=== PATIENT | male | born 1950 | race Caucasian/White ===

== ENCOUNTER → 2018-01-23 | Outpatient (CLI) | payer MEDICARE, OTHER ==
[~2018-01-23] MED LIST: DUT0.5 PO; FAM20 PO; GLUC500T13 PO; LEVO50 PO; LEVO50TA80 PO; LEVO75TA73 PO; LOR5/325 PO; LOSA100T67 PO; LOSA25TA46 PO; LUTE10TA3 PO; MOME17SP2 IH; MULT-1 PO; PANT40TA65 PO; PHENA200 PO; SULF-170 PO; TAM4 PO; TAMS0.4C76 PO; ZOLP6.2529 PO
--- NOTE | 2018-01-23 14:18 | RADIOLOGY IMAGING REPORT ---
FACILITY: [facility] PATIENT NAME: Hang Cruz : 1950 MR: [id number] V: [id number] EXAM DATE: ORDERING PHYSICIAN: RHEA FANG TECHNOLOGIST: Location: [facility] Patient: Hang Cruz : 1950 Visit/Account:[id number] Date of Sevice: 01/23/2018 Technique: CHEST PA AND LAT HISTORY: chronic cough COMPARISON: Chest radiographs 02/20 2014 Findings: The lungs are clear. No pleural effusion or pneumothorax. The cardiomediastinal silhouett e is unremarkable. Impression: 1. No acute cardiopulmonary process. Report Dictated By: Stan Thomas DO at 01/23/2018 2:13 PM Report E-Signed By: Stan Thomas DO at 01/23/2018 2:15 PM WSN:[id number]
== END ==
LOC: RAD 13:43
PROVIDERS: ATTEND Otolaryngology
DX: R05 Cough (principal)
CPT/HCPCS: 71046

== ENCOUNTER → 2018-09-21 | Outpatient (CLI) | payer MEDICARE, OTHER ==
[~2018-09-21] MED LIST changes: -LOSA100T67 PO; +LOSA100T75 PO
--- NOTE | 2018-09-21 17:04 | RADIOLOGY IMAGING REPORT ---
FACILITY: [facility] PATIENT NAME: Hang Cruz : 1950 MR: [id number] V: [id number] EXAM DATE: ORDERING PHYSICIAN: JP ALVES TECHNOLOGIST: Location: [facility] Patient: Hang Cruz : 1950 Visit/Account:[id number] Date of Sevice: 09/21/2018 EXAMINATION: CT chest without IV contrast HISTORY: Chronic cough and shortness of breath. TECHNIQUE: Spiral scan was obtained through the chest without intravenous contrast. Sagittal and c oronal reformatted images are also submitted. One of the following dose optimization techniques was utilized in the performance of this exam: Autom ated exposure control; adjustment of the mA and/or kV according to the patient's size; or use of an i terative reconstruction technique. Specific details can be referenced in the facility's radiology C T exam operational policy. COMPARISON: Chest x-ray dated 01/23/2018. FINDINGS: Lower neck: Negative. Lungs / pleura: Negative. Mediastinum / mica: Negative. Heart / pericardium: Negative. Vessels: Negative. Lymph nodes: Negative. Musculoskeletal / Body wall: Negative. Upper abdomen: Negative. IMPRESSION: No findings to explain chronic cough and shortness of breath. Report Dictated By: Abdulaziz Cristobal MD at 09/21/2018 4:57 PM Report E-Signed By: Abdulaziz Cristobal MD at 09/21/2018 5:01 PM WSN:[email or web address]
== END ==
LOC: CT 00:54
PROVIDERS: ATTEND Internal Medicine
DX: R05 Cough (principal)
CPT/HCPCS: 71250

== ENCOUNTER → 2019-01-01 | Outpatient (CLI) | payer MEDICARE, OTHER ==
--- NOTE | 2019-01-01 18:26 | RADIOLOGY IMAGING REPORT ---
FACILITY: [facility] [place] PATIENT NAME: Hang Cruz : 1950 MR: [id number] V: [id number] EXAM DATE: ORDERING PHYSICIAN: JP ALVES TECHNOLOGIST: [place] [facility] [place]: Hang Cruz : 1950 Visit/Account:[id number] Date of Sevice: 01/01/2019 EXAMINATION: CT of the Paranasal Sinuses HISTORY: Chronic cough, chronic sinus symptoms TECHNIQUE: CT was performed through the paranasal sinuses without intravenous contrast administratio n. Coronal and sagittal reformatted images were generated. One of the following dose optimization techniques was utilized in the performance of this exam: autom ated exposure control; adjustment of the mA and/or kV according to patient size; or use of iterative reconstruction technique. Specific details can be referenced in the facility's radiology CT exam ope rational policy. COMPARISON: None. FINDINGS: Clear mastoid air cells and middle ear cavities. Small volume right greater than left maxillary sinu s secretions. Mild bilateral maxillary sinus mucosal thickening. No nasal cavity polyp. Mild leftw layo nasal septum deviation. The right infundibulum is partially effaced by mucosal thickening. Reis nt left infundibulum. Mild right temporomandibular joint degeneration. The visible extracranial and intracranial structures are normal. IMPRESSION: Bilateral maxillary sinus mucosal thickening and secretions, findings which may reflect acute sinusit is. Mild leftward nasal septum deviation. Mild right TMJ degeneration. Report Dictated By: Tristan Hua MD at 01/01/2019 6:15 PM Report E-Signed By: Tristan Hua MD at 01/01/2019 6:20 PM WSN:[id number]
== END ==
LOC: CT
PROVIDERS: ATTEND Internal Medicine
DX: J34.2 Deviated nasal septum (principal); J34.89 Other specified disorders of nose and nasal sinuses
CPT/HCPCS: 70486